=== PATIENT | female | born 1985 | race Caucasian/White ===

== ENCOUNTER 2021-03-31 10:59 | Emergency (ER) | payer OTHER, SELFPAY ==
--- NOTE | ~2021-03-31 | CT_ITS ---
EXAMINATION: CT HEAD WITHOUT CONTRAST CLINICAL INFORMATION: Paresthesias. COMPARISON: None TECHNIQUE: Contiguous axial imaging was performed from the skull base to vertex without intravenous administration of contrast. This CT examination was performed using dose optimization techniques as appropriate, variously including the following: *Automated exposure control *Adjustment of mA and/or kV according to patient size (this includes techniques or standardized protocols for targeted exams where dose is matched to indication/reason for exam; i.e. extremities or head) *Use of iterative reconstruction technique DLP: 605 mGy-cm FINDINGS: There is no evidence of acute intracranial hemorrhage or territorial infarction. No abnormal mass effect or midline shift is seen. Park to white matter differentiation is well preserved. No extra-axial fluid collections are identified. The ventricles are normal in size. There is no abnormal attenuation within the brain parenchyma. The osseous structures and soft tissues are normal. The mastoid air cells and visualized portions of the paranasal sinuses are well aerated. CT/CT head/brain wo con IMPRESSION: No acute intracranial process seen
[2021-03-31 11:44] VITALS: BP 104/55; PULSE 55; RESP 16; TEMP 36.8; O2SAT 100; BMI 29.9
--- NOTE | 2021-03-31 12:32 | ED.NEUROSD ---
HPI - Neuro Symptoms/Deficit General Chief Complaint: Neuro Symptoms/Deficit Stated Complaint: tingling in face and head Time Seen by Provider: 03/31/21 12:13 Source: patient Mode of arrival: ambulatory Limitations: no limitations History of Present Illness HPI Narrative: 36 yo female with 2 weeks of intermittent tingling in face, rushes to head and tingling in hands/feet. she is under significant stress has no fam hx of MS. Not taking any medications came today as her symptoms in left face became more tingly. Onset (ago): week(s) (2) Location: left face and right face History of same: No Severity: mild Quality: tingling Relieving factors: none Exacerbating factors: none Context: gradual onset On Anticoagulants: No Associated symptoms: other (tingling in extremities at times) Treatments Prior to Arrival: none Related Data Allergies Allergy/AdvReac Type Severity Reaction Status Date / Time cat dander [cats] Allergy Hives Verified 03/31/21 11:51 Review of Systems Review of Systems: Constitutional : No Weight loss, No Fever, No Chills, No Fatigue, No Malaise ENT/Mouth : No sore throat, No Rhinorrhea Eyes: No Eye Pain, No Swelling, No Redness Cardiovascular : No Chest Pain, No SOB, No Dyspnea on Exertion, No Orthopnea, No Edema, No Palpitations Respiratory : No Cough, No Sputum, No Wheezing Gastrointestinal : No Nausea, No Vomiting, No Diarrhea, No Constipation, No abdominal Pain, No Hematochezia, No Melena Genitourinary : No Dysuria, No Urinary Frequency, No Hematuria, Musculoskeletal : No joint pain, No Myalgias, No Joint Swelling Skin : No Skin Lesions, No rash Neuro : No Weakness, pos Numbness, No Dizziness, pos Headache Psych : No Anxiety/Panic, No Depression Heme/Lymph: No Bruising, No Bleeding,No Lymphadenopathy Endocrine : No Polyuria, No Polydipsia All other systems reviewed and are negative PMFSH Past Medical History Attestation statement: The following information was validated with the patient. Medical History (Updated 03/31/21 @ 14:35 by Eve Bingham DO) Migraines No known health problems Surgical History (Updated 03/31/21 @ 12:40 by Eve iBngham DO) Bariatric surgery status Social History Social History (Updated 03/31/21 @ 12:41 by Eve Bingham DO) Patient Tobacco Use Status: Never used Tobacco Use of substances other than those prescribed or required for medical reasons: No Advance Directives: No Advance Directives Information Provided: No Patient : No Physical Exam Vital Signs: Vital Signs: Last Vital Signs Temp 98.8 F 03/31/21 12:52 Pulse 54 03/31/21 12:52 Resp 18 03/31/21 12:52 BP 110/66 03/31/21 12:52 Pulse Ox 100 03/31/21 12:52 Body Mass Index 29.9 Appearance: Alert. Oriented X3. No acute distress. Eyes: Pupils equal, round and reactive to light. ENT: Pharynx normal. Neck: Normal inspection. Neck supple. CVS: Normal heart rate and rhythm. Pulses normal. Respiratory: No respiratory distress. Breath sounds normal. Abdomen: Soft and nontender. Skin: Skin warm and dry. Normal skin color. Normal skin turgor. Extremities: No lower extremity edema. No calf ttp Neuro: Oriented X 3. No motor deficit. No sensory deficit. Course Course Course Narrative: patient stable for DC no acute findings can be DC with neurology follow up MDM - Neuro Symptoms/Deficit MDM Narrative Medical decision making narrative: 36 yo female hx of migraines comes in with c/o intermittent hot flashes to head and tingling in extremities and face, at this time electrolytes ordered, CT head for mass, dispo per results and findings, could be atypical migraine. Lab Data Result diagrams: 03/31/21 12:59 03/31/21 12:59 Labs: Lab Results 03/31/21 03/31/21 Range/Units 12:59 12:59 WBC 7.0 (4.8-10.8) X10*3/uL RBC 3.86 L (4.20-5.50) X10*6/uL Hgb 11.2 L (12.0-16.0) g/dl Hct 34.6 L (37-47) % MCV 89.6 (80-98) fL MCH 29.0 (27.0-33.0) pg MCHC 32.4 (31.0-35.0) g/dl RDW 13.9 (11.0-16.0) % Plt Count 326 (160-400) X10*3/uL MPV 10.8 (9.4-12.3) fL Immature Gran % (Auto) 0.3 (0.0-0.4) % Neut % (Auto) 54.8 (45-73) % Lymph % (Auto) 34.5 (20-40) % [place] % (Auto) 7.3 (2-11) % Eos % (Auto) 2.7 (0-4) % Baso % (Auto) 0.4 (0-2) % Lymph # (Auto) 2.4 (1.2-4.9) X10*3/uL [place] # (Auto) 0.5 (0.1-1.2) X10*3/uL Eos # (Auto) 0.2 (0.0-0.4) X10*3/uL Baso # (Auto) 0.0 (0.0-0.2) X10*3/uL Abs Immat Gran (auto) 0.02 (0.00-0.03) X10*3/uL Absolute Neuts (auto) 3.8 (2.0-8.3) X10*3/uL Absolute Nucleated RBC 0.000 (0.0-0.012) X10*3/uL Nucleated RBC % (auto) 0.0 (0.0-0.2) /100WBC Sodium 141 (135-145) mmol/L Potassium 4.4 (3.3-5.1) mmol/L Chloride 107 (96-108) mmol/L Carbon Dioxide 27 (22-29) mmol/L Anion Gap 11 L (12-20) BUN 13 (9-16) mg/dL Creatinine 0.64 (0.5-1.4) mg/dL Estim Creat Clear Calc 129.5 Estimated GFR > 60 Random Glucose 88 (60-115) mg/dL Calcium 9.0 (8.4-10.2) mg/dL Magnesium 2.3 (1.6-2.6) mg/dL NIH Stroke Scale Internal: Initial- Upon Arrival Level of Consciousness: Alert Level of Consciousness Questions: Answers both questions correctly Level of Consciousness Commands: Performs both tasks correctly Best Gaze: Normal Visual: No visual loss Facial Palsy: Normal Motor Arm (Right): No drift Motor Arm (Left): No drift Motor Leg (Right): No drift Motor Leg (Left): No drift Limb Ataxia: Absent Sensory: Normal Best Language: No aphasia Dysarthia: Normal Extinction and Inattention: No abnormality Score: 0 Discharge Plan Discharge Clinical Impression: Paresthesia Patient Disposition: Home, Self-Care Instructions: Paresthesia (ED) Additional Instructions: return to ED for any worsening symptoms or concerns Referrals: Gustavo Sun MD [Physician] - 2 weeks (call for appointment also touch base with your primary care doctor) Stand Alone Forms: Work/School Release
[2021-03-31] MEDS: Butalb/Acetamin/Caff 50/325/40 TABLET 1 TAB PO (12:48)
[2021-03-31 12:52] VITALS: BP 110/66; PULSE 54; RESP 18; TEMP 37.1; O2SAT 100
[2021-03-31 13:46] LABS: MANUAL DIFF FLAG NO
[2021-03-31 13:52] LABS: Basophils Percent Auto 0.4 % (0-2); Eosinophils Absolute Auto 0.2 X10*3/uL (0.0-0.4); Eosinophils Percent Auto 2.7 % (0-4); Hematocrit 34.6 % (37-47); Hemoglobin 11.2 g/dl (12.0-16.0); Imm Gran Abs Auto 0.02 X10*3/uL (0.00-0.03); Imm Gran Pct Auto 0.3 % (0.0-0.4); Lymphocytes Absolute Auto 2.4 X10*3/uL (1.2-4.9); Lymphocytes Percent Auto 34.5 % (20-40); Mean Corpuscular HGB Conc 32.4 g/dl (31.0-35.0); Mean Corpuscular Volume 89.6 fL (80-98); Mean Platelet Volume 10.8 fL (9.4-12.3); Monocytes Absolute Auto 0.5 X10*3/uL (0.1-1.2); Monocytes Percent Auto 7.3 % (2-11); Neutrophils Absolute Auto 3.8 X10*3/uL (2.0-8.3); Neutrophils Percent Auto 54.8 % (45-73); Platelet Count 326 X10*3/uL (160-400); Red Blood Count 3.86 X10*6/uL (4.20-5.50); Red Cell Distribution Width 13.9 % (11.0-16.0)
[2021-03-31 14:11] LABS: Anion Gap 11 (12-20); Blood Urea Nitrogen 13 mg/dL (9-16); Carbon Dioxide 27 mmol/L (22-29); Chloride 107 mmol/L (96-108); Creatinine Clr Calc Pharmacy 129.5; Estimated Glomerular Filt Rate > 60; Glucose Random 88 mg/dL (60-115); Magnesium 2.3 mg/dL (1.6-2.6); Potassium 4.4 mmol/L (3.3-5.1); Sodium 141 mmol/L (135-145)
== END 2021-03-31 14:41 | disposition home or self-care (01) ==
PROVIDERS: Emergency Provider Emergency Medicine
DX: R20.2 Paresthesia of skin (principal); R29.700 NIHSS score 0
CPT/HCPCS: 36415; 70450; 80048; 83735; 85025; 99284

== ENCOUNTER → 2022-10-07 10:30 | Outpatient (BNVA) | payer OTHER, SELFPAY | PROVIDERS: Visit Provider Physician Assistant Surgical | DX: E66.9 Obesity, unspecified (principal); L98.7 Excessive and redundant skin and subcutaneous tissue; Z98.84 Bariatric surgery status; Z68.30 Body mass index [BMI] 30.0-30.9, adult | CPT/HCPCS: 99212 ==

== ENCOUNTER 2023-01-22 10:01 | Outpatient (REF) | payer OTHER, SELFPAY ==
[2023-01-22 10:16] LABS: MANUAL DIFF FLAG NO
[2023-01-22 11:03] LABS: Basophils Percent Auto 0.4 % (0-2); Eosinophils Absolute Auto 0.2 X10*3/uL (0.0-0.4); Eosinophils Percent Auto 2.8 % (0-4); Hematocrit 33.7 % (37.0-47.0); Hemoglobin 11.1 g/dl (12.0-16.0); Imm Gran Abs Auto 0.02 X10*3/uL (0.00-0.03); Imm Gran Pct Auto 0.4 % (0.0-0.4); Lymphocytes Absolute Auto 2.1 X10*3/uL (1.2-4.9); Mean Corpuscular HGB Conc 32.9 g/dl (31.0-35.0); Mean Corpuscular Hemoglobin 29.1 pg (27.0-33.0); Mean Corpuscular Volume 88.2 fL (80.0-98.0); Mean Platelet Volume 10.4 fL (9.4-12.3); Monocytes Absolute Auto 0.4 X10*3/uL (0.1-1.2); Monocytes Percent Auto 6.7 % (2-11); Neutrophils Absolute Auto 2.9 x10*3/uL (2.0-8.3); Neutrophils Percent Auto 51.7 % (45-73); Platelet Count 325 X10*3/uL (160-400); Red Blood Count 3.82 X10*6/uL (4.20-5.50); Red Cell Distribution Width 15.1 % (11.0-16.0); White Blood Count 5.6 X10*3/uL (4.8-10.8)
[2023-01-22 11:19] LABS: Estimated Average Glucose 94 mg/dL; Hemoglobin A1c % 4.9 %
[2023-01-22 11:55] LABS: Alanine Aminotransferase 10 U/L (0-31); Albumin Level 3.9 g/dL (3.5-5.0); Alkaline Phosphatase 71 U/L (39-117); Anion Gap 12 (12-20); Aspartate Amino Transferase 16 U/L (5-31); Bilirubin Total 0.6 mg/dL (0.0-1.0); Blood Urea Nitrogen 14 mg/dL (9-16); C Reactive Protein < 0.10 mg/dL (< or = 0.50); Carbon Dioxide 27 mmol/L (22-29); Chloride 107 mmol/L (96-108); Cholesterol 180 mg/dL; Estimated Glomerular Filt Rate > 60; Glucose Random 83 mg/dL (60-115); HDL Cholesterol 65 mg/dL; Iron 56 mcg/dL (30-160); LDL Cholesterol Calculated 102 mg/dl; Percent Iron Saturation 16 % (15-50); Sodium 142 mmol/L (135-145); Total Iron Binding Capacity 359 mcg/dL (228-428); Total Protein 6.9 g/dL (6.5-8.0); Triglycerides 69 mg/dL; Unsaturated Iron Binding 303 ug/dL
[2023-01-22 12:01] LABS: Ferritin 17 ng/mL (10-122); Insulin 6 uU/mL (2-29); Vitamin D 25-OH Total 21.6 ng/mL (>30)
[2023-01-27 03:44] LABS: Zinc 82 mcg/dL (60-130)
[2023-01-27 14:18] LABS: Calcium (PTHI) 8.8 mg/dL (8.6-10.2); PTHI 98 pg/mL (16-77)
[2023-01-28 02:43] LABS: Vitamin A 31 mcg/dL (38-98)
[2023-01-29 14:09] LABS: Vitamin B1 8 nmol/L (8-30)
== END 2023-01-22 10:02 | disposition home or self-care (01) ==
LOC: HO.LAB 10:01
PROVIDERS: Visit Provider Physician Assistant Surgical
DX: Z98.84 Bariatric surgery status (principal)
CPT/HCPCS: 36415; 80053; 80061; 82306; 82728; 83036; 83525; 83540; 83970; 84425; 84590; 84630; 85025; 86140

== ENCOUNTER 2024-08-03 10:14 | Outpatient (AMB) | payer OTHER, SELFPAY ==
--- NOTE | 2024-08-03 10:05 | MHC.OFFVISWM ---
VS Expanded 08/03/24 10:09 Height 5 ft 5.5 in Weight 164 lb BMI 26.9 Intake Visit Reasons: (TV) PO LSG 12/28/17 Allergies cat dander [cats] Allergy (Verified 10/07/22 10:34) Hives Medication List - Last Reconciled 08/03/24 by CURT Champagne cholecalciferol (vitamin D3) 50 mcg PO DAILY clotrimazole 1% 1 appl topical BID vitamin A palmitate 10,000 units PO DAILY HPI Comments Details: This?is a?39?yo female who is s/p LSG 12/28/2017. Presents for 6 year 7 month post op visit. Weight loss of 21.6lbs since last OV in October 2022.? No complaints of nausea, emesis, abdominal pain or reflux, or constipation. Pt reports that she has been at this weight since around January or February. Present meal plan includes: will have a shake between meals still has a lot of restriction, eats several small meals per day meals- rice with meat and veg, sometimes potato Exercise routine includes: was swimming in mornings at [employer] for 90min hiking in the summer, now home workouts Pt reports excess skin of abdomen and upper arms which is causing discomfort. Occasionally develops itchy rashes in skin fold of abdomen, has to clean frequently and uses clotrimazole Rx to treat. Has to sit all day at work and the excess skin of abdomen makes it uncomfortable; unable to wear pants with certain waistbands. Extra skin of arms gets pinched at the axilla with movement which is painful. Excess skin of thighs has also become bothersome- pt has started to experience chafing with movement/walking, which is painful. Moisture of the thighs causes rashes and skin discoloration. Did the patient ever have any of these conditions and are they resolved or still being treated? GERD: n/a CRISTA:? n/a DM:? n/a HTN:? n/a Hyperlipidemia:? n/a Post op complications:? n/a Have you been diagnosed with reflux (GERD)? no Score 0-5: 0=no symptoms, 1=noticeable but not bothersome (slight or occasional), 2=noticeable, bothersome but not daily, 3=bothersome and daily, 4=affects daily activities, 5=incapacitating, unable to do daily activities How bad is the heartburn: 0 Heartburn when lying down: 0 Heartburn when standing up: 0 Heartburn after meals: 0 Does heartburn change your diet: 0 Does heartburn wake you up from sleep: 0 Do you have difficulty swallowin Do you have pain with swallowin If you take medication for reflux, does this affect your daily life: 0 Total score: 0 PFSH Medical History (Updated 08/03/24 @ 10:25 by CURT Champagne) Migraines No known health problems Surgical History Bariatric surgery status Hx of breast surgery Hx of neck surgery Family History Mother No problems noted. Father No problems noted. Sister No problems noted. Sister No problems noted. Sister No problems noted. Brother No problems noted. Son No problems noted. Daughter No problems noted. Social History Alcohol intake: current Alcohol intake frequency: holidays/special occasions only Patient Tobacco Use Status: Never used Tobacco Telehealth Telehealth Telehealth Platform: Telephone Location of provider rendering services: other Location of patient: address on file Patient Identification confirmed using: Name, : Yes Telehealth method: voice only Patient verbally consented to treatment: Yes Patient verbally consented to billing insurance company: Yes Patient informed of any privacy concerns related to visit: Yes Minutes spent on Phone/Video with Pt.: 18 Assessment & Plan Assessment & Plan (1) Excess skin: Code(s): L98.7 - Excessive and redundant skin and subcutaneous tissue Category: Medical (2) S/P laparoscopic sleeve gastrectomy: Code(s): Z98.84 - Bariatric surgery status Category: Surgical (3) Overweight: Code(s): E66.3 - Overweight Category: Medical Plan Pt has reached a BMI < 27 which is stable for 6+ months per her account. She is experiencing problems of excess skin of arms, including chafing with movement, particularly walking when arms rub against torso and causes skin irritation which is painful and uncomfortable. She has been trying to manage this issue with topical treatment/creams but this has proved ineffective and has not resolved her discomfort and pain. Also experiencing problems of excess skin of abdomen, resulting in frequent painful rashes of abdominal skin fold. Conservative treatment such as special clothing and topical Rx treatments have not resolved her issue and she continues to experience pain and discomfort from skin issues. Pt would benefit from definitive treatment of brachioplasty and panniculectomy. Pt prefers to have arms and belly done first. Pt already has a scheduled appt for Sep 19 in office, will keep and at that time can perform physical exam and take photos if pt weight remains stable. In the meantime continue conservative treatment for issues of excess skin of arms. Labs ordered. I spent a total of 30 minutes reviewing/updating records, examining the patient and counseling the patient on weight management as detailed above. Orders: Orders Complete Blood Count Auto Diff Today Z.84 - Bariatric surgery status Lipid Panel Today Z.84 - Bariatric surgery status Comprehensive Met. Panel Today Z.84 - Bariatric surgery status Vitamin B12 and Folate Today Z.84 - Bariatric surgery status Vitamin B1 Today Z98.84 - Bariatric surgery status Insulin Today Z98.84 - Bariatric surgery status Hemoglobin A1c Today Z98.84 - Bariatric surgery status IRON PROFILE Today Z98.84 - Bariatric surgery status Zinc Today Z98.84 - Bariatric surgery status C Reactive Protein Today Z98.84 - Bariatric surgery status Vitamin A Today Z98.84 - Bariatric surgery status TSH reflex Free T4 Today Z98.84 - Bariatric surgery status Ferritin Today Z98.84 - Bariatric surgery status Vitamin D 25-OH Total Today Z98.84 - Bariatric surgery status
[2024-08-03 10:09] VITALS: BMI 26.9
== END 2024-08-03 10:35 | disposition home or self-care (01) ==
LOC: HO.HBS 10:14
PROVIDERS: Visit Provider Physician Assistant Surgical
DX: L98.7 Excessive and redundant skin and subcutaneous tissue (principal); Z98.84 Bariatric surgery status; E66.3 Overweight
CPT/HCPCS: 99214; G2211

== ENCOUNTER → 2024-08-03 10:14 | Outpatient (BNVA) | payer OTHER, SELFPAY | PROVIDERS: Visit Provider Physician Assistant Surgical ==